=== PATIENT | male | born 1990 | race Caucasian/White ===

== ENCOUNTER 2021-12-23 15:22 | Emergency (ER) | payer SELFPAY ==
[~2021-12-23] VITALS: Ht 190.5 cm; Wt 109.0 kg
[2021-12-23] MEDS ORDERED: HYDROCODONE/ACETAMINOPHEN 5/325MG TABLET PO ONE (15:45)
[2021-12-23] MEDS ORDERED: BACITRACIN ZINC OINT UDPKT TOP ONE (17:15)
[2021-12-23] MEDS ORDERED: BO1 TP ×5 (18:00→18:51)
[2021-12-23] MEDS ORDERED: NAPR-1176 MT ×4 (18:00→18:06)
[2021-12-23 18:45] VITALS: BP 122/60
[2021-12-23] MEDS ORDERED: NAPR500T7 MT (18:51)
[2021-12-23] MEDS ORDERED: NAPR-681 MT (18:51)
== END 2021-12-23 19:37 | disposition home or self-care (01) ==
LOC: ER 15:22
DX: S93.01XA Subluxation of right ankle joint, initial encounter (principal); M25.562 Pain in left knee; W18.39XA Other fall on same level, initial encounter; Y93.89 Activity, other specified; Y92.89 Other specified places as the place of occurrence of the external cause; Y99.8 Other external cause status; Z79.899 Other long term (current) drug therapy
CPT/HCPCS: 73562; 73610; 99284; Z7610